=== PATIENT | female | born 1985 | race Caucasian/White ===

== ENCOUNTER 2016-09-11 21:17 | Inpatient (IN) | payer OTHER ==
[~2016-09-11] VITALS: Ht 170.2 cm; Wt 69.6 kg
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
[2016-09-11] MEDS ORDERED: fentaNYL INJECTION 100 MCG/2 ML AMP ONE (21:55)
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
[2016-09-11 21:58] LABS: BILIRUBIN,URINE NEGATIVE (NEGATIVE); KETONES,URINE NEGATIVE (NEGATIVE); LEUKOCYTE ESTERASE ,URINE NEGATIVE (NEGATIVE); NITRITE,URINE NEGATIVE (NEGATIVE); PH,URINE 6 (5-9); PROTEIN,URINE 3+ (NEGATIVE); UROBILINOGEN,URINE NORMAL (NORMAL)
[2016-09-11 22:07] LABS: RED BLOOD COUNT 3.73 10^6/uL (4.35-5.85); WHITE BLOOD COUNT 18.4 10^3/uL (4.3-11.0)
[2016-09-11 22:23] LABS: INR 1.6 (0.8-1.4); PROTHROMBIN TIME PATIENT 18.6 SEC (12.2-14.7)
[2016-09-11] MEDS ORDERED: ROCURONIUM 50 MG/5 ML (ZEMURON) VIAL IV ONE (22:26)
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
[2016-09-11 22:33] LABS: ALANINE AMINOTRANSFERASE 101 U/L (0-55); ALBUMIN 2.7 G/DL (3.2-4.5); ALCOHOL 195 MG/DL (<10); ANION GAP 11 MMOL/L (5-14); ASPARTATE AMINO TRANSFERASE 132 U/L (5-34); BILIRUBIN,DIRECT 0.1 MG/DL (0.0-0.3); BILIRUBIN,INDIRECT 0.2 MG/DL; BILIRUBIN,TOTAL 0.3 MG/DL (0.1-1.0); BLOOD UREA NITROGEN 11 MG/DL (7-18); BUN/CREATININE RATIO 15; CALCIUM 6.8 MG/DL (8.5-10.1); CARBON DIOXIDE 15 MMOL/L (21-32); CHLORIDE 119 MMOL/L (98-107); CREATININE SERUM 0.74 MG/DL (0.60-1.30); GFR ESTIMATED > 60; GLUCOSE 173 MG/DL (70-105); MAGNESIUM 2.1 MG/DL (1.8-2.4); PHOSPHORUS 3.5 MG/DL (2.3-4.7); POTASSIUM 2.9 MMOL/L (3.6-5.0); SODIUM 145 MMOL/L (135-145); TOTAL PROTEIN 4.4 G/DL (6.4-8.2)
[2016-09-11] MEDS ORDERED: LACTATED RINGERS 1,000 ML IV ONE (22:34)
[2016-09-11] MEDS ORDERED: EPINEPHrine INJECTION 1 MG/ML AMP ONE (23:13)
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
[2016-09-11] MEDS ORDERED: HEParin (CENTRAL IV FLUSH) 500 UNIT/5 ML SYR ONE ×2 (23:44→23:58)
[2016-09-12] VITALS (38 sets, daily range): BP systolic 53–141; BP diastolic 11–94
[2016-09-12] MEDS ORDERED: PHENYLEPHRINE 100 MCG/ML 10 ML (ANESTHESIA) SYR ONE (00:06)
[2016-09-12] MEDS ORDERED: EPINEPHrine INJECTION 1 MG/ML AMP ONE (00:06)
[2016-09-12] MEDS ORDERED: NS (IVPB) 200 ML ONE (00:06)
[2016-09-12] MEDS ORDERED: PHENYLEPHRINE INJ 10 MG/ML (NEO-SYNEPHRINE 1%) ONE (00:06)
[2016-09-12] MEDS ORDERED: SEVOFLURANE (ULTANE) 15 ML INHAL SOLN ONE (00:08)
[2016-09-12] MEDS ORDERED: CALCIUM CHLORIDE 1 GM/10 ML (IMS) SYR INJ ONE (00:30)
[2016-09-12] MEDS ORDERED: PROPOFOL DRIP (ICU) 100 ML IV ONE (00:54)
--- NOTE | 2016-09-12 00:54 | Progress Note-Post Operative ---
Post-Operative Progess Note Steam Pressure Chamber Operator Nakul Dempsey, IRASEMA Pre-Operative Diagnosis Right Closed Femur Fracture Post-Operative Diagnosis Same Post-Op Procedure Note Date of Procedure: Sep 11, 2016 Name of Procedure: Ex Fix Right Femur Procedure Note/Findings Fracture Anesthesia Type GETA Estimated blood loss (mL): RICHI Steve MD Sep 12, 2016 00:54
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
[2016-09-12] MEDS ORDERED: NS IV 500 ML 1,000 ML ONE (01:06)
[2016-09-12] MEDS ORDERED: SODIUM BICARB 8.4% 50 MEQ/50 ML (ABBOTT) SYR ONE (01:25)
[2016-09-12 01:26] LABS: BASOPHILS # (AUTO) 0.1 10^3/uL (0.0-0.1); BASOPHILS % (AUTO) 0 % (0-10); EOSINOPHILS % (AUTO) 0 % (0-10); LYMPHOCYTES # (AUTO) 3.9 X 10^3 (1.0-4.0); LYMPHOCYTES % (AUTO) 11 % (12-44); MEAN CORPUSCULAR HEMOGLOBIN 32 PG (25-34); MEAN CORPUSCULAR HGB CONC 35 G/DL (32-36); MEAN CORPUSCULAR VOLUME 92 FL (80-99); MONOCYTES # (AUTO) 2.5 X 10^3 (0.0-1.0); MONOCYTES % (AUTO) 7 % (0-12); NEUTROPHILS # (AUTO) 27.8 X 10^3 (1.8-7.8); NEUTROPHILS % (AUTO) 81 % (42-75); PLATELET COUNT 147 10^3/uL (130-400); RED BLOOD COUNT 4.47 10^6/uL (4.35-5.85); RED CELL DISTRIBUTION WIDTH 13.9 % (10.0-14.5)
[2016-09-12 01:27] LABS: WHITE BLOOD COUNT 34.4 10^3/uL (4.3-11.0)
[2016-09-12] MEDS ORDERED: NOREPINEPHRINE 4 MG/4 ML (LEVOPHED) AMP IV ONE ×2 (01:38→01:40)
[2016-09-12] MEDS ORDERED: D5W 250 ML (IVPB) 250 ML IV ONE (01:40)
[2016-09-12] MEDS ORDERED: NS IV 500 ML 500 ML ONE ×2 (01:43→09:46)
[2016-09-12] MEDS ORDERED: SODIUM BICARB 8.4% 50 MEQ/50 ML (ABBOTT) SYR IV ONE ×2 (01:45→03:00)
[2016-09-12] MEDS ORDERED: NS IV 1000 ML 1,000 ML ONE (01:48)
[2016-09-12] MEDS ORDERED: fentaNYL INJECTION 100 MCG/2 ML AMP ONE (01:54)
[2016-09-12] MEDS: NOREPINEPHRINE 4 MG in D5W 250 ML (IVPB) IV SCH ×2 (02:00→14:22)
[2016-09-12 02:29] LABS: ABG BASE EXCESS -13.3 MMOL/L (-2.5-2.5); ABG OXYGEN SATURATION 99 % (94-100); ABG PCO2 42 MMHG (35-45); ABG PO2 156 MMHG (79-93); ABG TCO2 15.5 MMOL/L (21.0-31.0); ALLENS TEST ART LINE
[2016-09-12 02:30] LABS: PATIENT TEMP 96.5
[2016-09-12 02:31] LABS: ABG PH 7.15 (7.37-7.43)
[2016-09-12] MEDS: fentaNYL INJECTION 100 MCG/2 ML AMP IV PRN ×4 (02:55→06:28)
[2016-09-12] MEDS: LACTATED RINGERS 1,000 ML IV SCH ×3 (03:18→15:53)
[2016-09-12] MEDS: PANTOPRAZOLE 40 MG/10 ML (PROTONIX) VIAL IV SCH ×3 (03:18→21:04)
[2016-09-12] MEDS ORDERED: NS (IVPB) 100 ML ONE (04:05)
[2016-09-12 05:00] LABS: ABG BASE EXCESS -2.8 MMOL/L (-2.5-2.5); ABG HCO3 22 MMOL/L (23-27); ABG OXYGEN SATURATION 100 % (94-100); ABG PCO2 42 MMHG (35-45); ABG PO2 148 MMHG (79-93); ABG TCO2 23.2 MMOL/L (21.0-31.0)
[2016-09-12 05:02] LABS: ALLENS TEST ALINE; PATIENT TEMP 99.7
[2016-09-12 05:04] LABS: ABG PH 7.34 (7.37-7.43)
[2016-09-12 05:40] LABS: BASOPHILS % (AUTO) 0 % (0-10); EOSINOPHILS % (AUTO) 0 % (0-10); LYMPHOCYTES % (AUTO) 15 % (12-44); MEAN CORPUSCULAR HEMOGLOBIN 31 PG (25-34); MEAN CORPUSCULAR HGB CONC 35 G/DL (32-36); MEAN CORPUSCULAR VOLUME 90 FL (80-99); MEAN PLATELET VOLUME 9.4 FL (7.4-10.4); MONOCYTES # (AUTO) 1.8 X 10^3 (0.0-1.0); MONOCYTES % (AUTO) 14 % (0-12); NEUTROPHILS # (AUTO) 9.5 X 10^3 (1.8-7.8); NEUTROPHILS % (AUTO) 71 % (42-75); PLATELET COUNT 145 10^3/uL (130-400); RED BLOOD COUNT 2.62 10^6/uL (4.35-5.85); RED CELL DISTRIBUTION WIDTH 13.7 % (10.0-14.5); WHITE BLOOD COUNT 13.2 10^3/uL (4.3-11.0)
[2016-09-12 05:53] LABS: INR 1.5 (0.8-1.4); PROTHROMBIN TIME PATIENT 17.4 SEC (12.2-14.7)
[2016-09-12] MEDS: POTASSIUM CL 10MEQ/50ML IVPB 50 ML IV SCH ×5 (06:00→10:03)
[2016-09-12] MEDS: MAGNESIUM 1 GM/100 ML IVPB 100 ML IV SCH ×3 (06:00→07:45)
[2016-09-12] MEDS: inSUlin (REGULAR) HUMAN 1 UNIT/0.01 ML (CHARGE PER UNIT) SC SCH ×4 (06:00→23:55)
[2016-09-12 06:02] LABS: ANION GAP 14 MMOL/L (5-14); BLOOD UREA NITROGEN 13 MG/DL (7-18); BUN/CREATININE RATIO 15; CALCIUM 7.6 MG/DL (8.5-10.1); CARBON DIOXIDE 21 MMOL/L (21-32); CHLORIDE 117 MMOL/L (98-107); CREATININE SERUM 0.88 MG/DL (0.60-1.30); GFR ESTIMATED > 60; GLUCOSE 99 MG/DL (70-105); MAGNESIUM 1.5 MG/DL (1.8-2.4); POTASSIUM 3.2 MMOL/L (3.6-5.0); SODIUM 152 MMOL/L (135-145)
--- NOTE | 2016-09-12 06:22 | Diagnostic Imaging Report ---
EXAMINATION: Chest radiograph, portable AP view. DATE: September 11, 2016 at 2223 hours. INDICATION: 31-year-old female, chest tube placement. COMPARISON: September 11, 2016 at 2132 hrs. FINDINGS: There is a left-sided chest tube in place which is new since the comparison exam. The left-sided pneumothorax currently measures 2.2 cm from the left lung apex which given differences in patient positioning is fairly similar to comparison exam. This was previously measured at 1.8 cm. There are left-sided rib fractures again noted. The endotracheal tube is approximately 2.7 cm above the xochilt. The nasogastric tube side-port is at the level of the stomach. The tip extends beyond the inferior margin of the [id number]. There is no identified right-sided pneumothorax. There is no large pleural effusion. There is nonspecific multifocal lung consolidation which appears increased in the left midlung and slightly increased in the right lower lobe since the recent comparison exam. IMPRESSION: 1. Redemonstrated left-sided pneumothorax with interval placement of left-sided chest tube. Given differences in positioning, the left-sided pneumothorax is likely essentially unchanged in size. 2. Additional support lines and tubes as above. 3. Multifocal lung consolidation which is increasing in the left midlung and mildly increasing in the right lower lobe. Dictated by: Dictated on workstation # [id number]
[2016-09-12 06:29] LABS: TROPONIN I 1.77 NG/ML (<0.30)
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
[2016-09-12] MEDS: fentaNYL INJECTION 1,250 MCG in NS (IVPB) 225 ML IV SCH ×2 (06:40→08:22)
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
[2016-09-12] MEDS ORDERED: NS IV 1000 ML 1,000 ML IV ONE ×4 (07:19)
[2016-09-12] MEDS ORDERED: fentaNYL INJECTION 100 MCG/2 ML AMP IVP ONE (07:30)
--- NOTE | 2016-09-12 08:31 | Physical Therapy Progress Note ---
Therapy Progress Note Chart review complete. Patient is intubated at this time. Evaluation will be attempted when patient is off the vent. MARVIN LOZANO PT Sep 12, 2016 08:31
[2016-09-12] MEDS: CHLORHEXIDINE 0.12% SOLN 15 ML (PERIDEX) UDC PO SCH ×2 (08:46→21:04)
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
[2016-09-12] MEDS ORDERED: POTASSIUM PHOSPHATE INJ 30 MM in NS (IVPB) 250 ML IV ONE (09:45)
[2016-09-12] MEDS: FLU TRIvalent (5 YOA+) 2016-17 (AFLURIA) 0.5 ML IM ONE (09:52)
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
[2016-09-12] MEDS ORDERED: SUCCINYLCHOLINE INJ 100 MG/5 ML SYR INJ ONE (10:52)
[2016-09-12] MEDS ORDERED: fentaNYL INJECTION 100 MCG/2 ML AMP INJ ONE (10:52)
[2016-09-12] MEDS ORDERED: ETOMIDATE IV SOLN 20 MG/10 ML VIAL IV ONE (10:52)
[2016-09-12] MEDS ORDERED: MIDAZOLAM 5 MG/5 ML (VERSED) VIAL INJ ONE (10:52)
[2016-09-12] MEDS: ceFAZolin INJECTION 1,000 MG in NS (IVPB) 50 ML IV SCH ×2 (11:15→17:57)
--- NOTE | 2016-09-12 11:44 | Progress Note-Standard ---
Standard Progress Note Progress Notes/Assess & Plan Progress/Assessment & Plan 09/12/16:seen around 9 o'clock this morning. Hypotension requiring vasopressor therapy. It is likely that replacement of blood has been inadequate and therefore additional transfusion would be instituted. No abdominal distention. Pneumothorax resolved. Will recheck hemoglobin and transfuse appropriately. Pneumococcal, meningococcal and Haemophilus influenza vaccines will be administered within the next 24-48 hours. Goal will be to discontinue vasopressor therapy as soon as possible Final Diagnosis ruptured spleen with acute anemia. Left pneumothorax. Fracture of the right femur. WAGNER FITZGERALD MD Sep 12, 2016 11:44 am
[2016-09-12] MEDS ORDERED: NON-FORMULARY MEDICATION 1 EA EA INJ SCH (14:15)
[2016-09-12] MEDS ORDERED: PNEUMOCOCCAL VACCINE 25 MCG/0.5 ML VIAL IM ONE (14:15)
[2016-09-12] MEDS: morphine PCA 30 MG/30 ML VIAL IV PRN ×2 (15:51→21:45)
[2016-09-12] MEDS ORDERED: HAEMOPH B POLY CONJ-TET TOX/PF 0.5 ML/10 MCG SOLN IM ONE (19:00)
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
[2016-09-12 23:04] LABS: ABG HCO3 14 MMOL/L (23-27)
[2016-09-13] VITALS (28 sets, daily range): BP systolic 86–150; BP diastolic 39–102
[2016-09-13] MEDS: LACTATED RINGERS 1,000 ML IV SCH ×2 (01:35→11:34)
[2016-09-13] MEDS: ceFAZolin INJECTION 1,000 MG in NS (IVPB) 50 ML IV SCH (01:37)
[2016-09-13] MEDS: morphine PCA 30 MG/30 ML VIAL IV PRN ×4 (02:47→20:34)
[2016-09-13 04:17] LABS: ABG BASE EXCESS -1.8 MMOL/L (-2.5-2.5); ABG HCO3 22 MMOL/L (23-27); ABG OXYGEN SATURATION 87 % (94-100); ABG PCO2 35 MMHG (35-45); ABG PH 7.42 (7.37-7.43); ABG PO2 51 MMHG (79-93); ABG TCO2 23.1 MMOL/L (21.0-31.0)
[2016-09-13 04:21] LABS: ALLENS TEST ART LINE; PATIENT TEMP 99.2
[2016-09-13 04:26] LABS: BASOPHILS # (AUTO) 0.1 10^3/uL (0.0-0.1); BASOPHILS % (AUTO) 0 % (0-10); EOSINOPHILS # (AUTO) 0.1 10^3/uL (0.0-0.3); EOSINOPHILS % (AUTO) 1 % (0-10); LYMPHOCYTES # (AUTO) 2.8 X 10^3 (1.0-4.0); LYMPHOCYTES % (AUTO) 18 % (12-44); MEAN CORPUSCULAR HEMOGLOBIN 31 PG (25-34); MEAN CORPUSCULAR HGB CONC 36 G/DL (32-36); MEAN CORPUSCULAR VOLUME 87 FL (80-99); MEAN PLATELET VOLUME 10.1 FL (7.4-10.4); MONOCYTES # (AUTO) 1.6 X 10^3 (0.0-1.0); MONOCYTES % (AUTO) 10 % (0-12); NEUTROPHILS # (AUTO) 11.2 X 10^3 (1.8-7.8); NEUTROPHILS % (AUTO) 71 % (42-75); PLATELET COUNT 142 10^3/uL (130-400); RED BLOOD COUNT 3.04 10^6/uL (4.35-5.85); RED CELL DISTRIBUTION WIDTH 14.9 % (10.0-14.5); WHITE BLOOD COUNT 15.7 10^3/uL (4.3-11.0)
[2016-09-13 04:43] LABS: ALANINE AMINOTRANSFERASE 75 U/L (0-55); ALBUMIN 2.5 G/DL (3.2-4.5); ANION GAP 8 MMOL/L (5-14); ASPARTATE AMINO TRANSFERASE 100 U/L (5-34); BILIRUBIN,TOTAL 0.8 MG/DL (0.1-1.0); BLOOD UREA NITROGEN 19 MG/DL (7-18); BUN/CREATININE RATIO 21; CALCIUM 7.2 MG/DL (8.5-10.1); CARBON DIOXIDE 20 MMOL/L (21-32); CHLORIDE 117 MMOL/L (98-107); CREATININE SERUM 0.92 MG/DL (0.60-1.30); GFR ESTIMATED > 60; GLUCOSE 103 MG/DL (70-105); MAGNESIUM 1.9 MG/DL (1.8-2.4); SODIUM 145 MMOL/L (135-145); TOTAL PROTEIN 4.3 G/DL (6.4-8.2)
[2016-09-13] MEDS: inSUlin (REGULAR) HUMAN 1 UNIT/0.01 ML (CHARGE PER UNIT) SC SCH (06:00)
[2016-09-13] MEDS: MAGNESIUM 1 GM/100 ML IVPB 100 ML IV SCH (06:00)
[2016-09-13] MEDS: POTASSIUM CL 10MEQ/50ML IVPB 50 ML IV SCH (06:00)
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
[2016-09-13] MEDS: PANTOPRAZOLE 40 MG/10 ML (PROTONIX) VIAL IV SCH ×2 (08:57→20:21)
--- NOTE | 2016-09-13 10:39 | Diagnostic Imaging Report ---
INDICATION: Shortness of breath. FINDINGS: The heart size is normal. There is bibasilar atelectasis and/or pneumonitis, left greater than right. There is no pleural effusion or pneumothorax. Mediastinum is unremarkable. ET and NG tubes are in satisfactory position. There is free air beneath both hemidiaphragms. IMPRESSION: Bibasilar infiltrates, left greater than right. Small amount of free air beneath the hemidiaphragms presumably related to recent splenectomy. Dictated by: Dictated on workstation # [id number]
[2016-09-13] MEDS ORDERED: ONDANSETRON 4 MG/2 ML (SDV) Z0FRAN ONE (11:37)
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
[2016-09-13] MEDS ORDERED: LACTATED RINGERS 1,000 ML IV SCH (12:24)
[2016-09-13] MEDS ORDERED: CALCIUM GLUC. 10% 4.65 MEQ/10 ML VIAL IV ONE (12:30)
[2016-09-13] MEDS ORDERED: CALCIUM GLUCONATE 10% INJ 4.65 MEQ in NS (IVPB) 100 ML IV NR (12:45)
--- NOTE | 2016-09-13 17:38 | Anesthesia-General Post-Op ---
General Patient Condition Mental Status/LOC: Same as Preop Cardiovascular: Satisfactory Nausea/Vomiting: Absent Respiratory: Satisfactory Pain: Controlled Complications: Absent Post Op Complications Complications None Follow Up Care/Instructions Patient Instructions None needed. Anesthesia/Patient Condition Patient Condition Patient is stable, no apparent adverse anesthesia problems. No complications reported per nursing. [place] [facility] [place] No PO ROSSI CRNA Sep 13, 2016 17:38
[2016-09-13 18:30] LABS: CALCIUM IONIZED 1.07 mmol/L (1.16-1.32); CORRECTED IONIZED CALCIUM 1.07 mmol/L (1.16-1.32)
[2016-09-13] MEDS: ONDANSETRON 4 MG/2 ML (SDV) Z0FRAN IVP PRN (20:21)
[2016-09-13] MEDS: D5 1/2 NS W/KCL 20 MEQ/L 1,000 ML IV SCH (22:25)
[2016-09-14] VITALS (22 sets, daily range): BP systolic 106–133; BP diastolic 56–87
[2016-09-14] MEDS: ONDANSETRON 4 MG/2 ML (SDV) Z0FRAN IVP PRN ×2 (03:29→09:43)
[2016-09-14 04:39] LABS: BASOPHILS # (AUTO) 0.1 10^3/uL (0.0-0.1); BASOPHILS % (AUTO) 0 % (0-10); EOSINOPHILS # (AUTO) 0.2 10^3/uL (0.0-0.3); EOSINOPHILS % (AUTO) 1 % (0-10); LYMPHOCYTES # (AUTO) 1.7 X 10^3 (1.0-4.0); LYMPHOCYTES % (AUTO) 11 % (12-44); MEAN CORPUSCULAR HEMOGLOBIN 31 PG (25-34); MEAN CORPUSCULAR HGB CONC 34 G/DL (32-36); MEAN CORPUSCULAR VOLUME 91 FL (80-99); MEAN PLATELET VOLUME 9.9 FL (7.4-10.4); MONOCYTES # (AUTO) 1.2 X 10^3 (0.0-1.0); MONOCYTES % (AUTO) 7 % (0-12); NEUTROPHILS # (AUTO) 12.9 X 10^3 (1.8-7.8); NEUTROPHILS % (AUTO) 81 % (42-75); PLATELET COUNT 141 10^3/uL (130-400); RED BLOOD COUNT 2.71 10^6/uL (4.35-5.85); RED CELL DISTRIBUTION WIDTH 13.9 % (10.0-14.5)
[2016-09-14 05:04] LABS: ANION GAP 6 MMOL/L (5-14); BLOOD UREA NITROGEN 12 MG/DL (7-18); BUN/CREATININE RATIO 19; CARBON DIOXIDE 23 MMOL/L (21-32); CHLORIDE 108 MMOL/L (98-107); CREATININE SERUM 0.64 MG/DL (0.60-1.30); GFR ESTIMATED > 60; GLUCOSE 113 MG/DL (70-105); MAGNESIUM 1.7 MG/DL (1.8-2.4); PHOSPHORUS 2.2 MG/DL (2.3-4.7); POTASSIUM 4.2 MMOL/L (3.6-5.0); SODIUM 137 MMOL/L (135-145)
[2016-09-14] MEDS: MAGNESIUM 1 GM/100 ML IVPB 100 ML IV SCH ×3 (06:00→08:10)
[2016-09-14] MEDS: POTASSIUM CL 10MEQ/50ML IVPB 50 ML IV SCH (06:00)
[2016-09-14] MEDS: morphine PCA 30 MG/30 ML VIAL IV PRN ×2 (06:19→19:11)
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
[2016-09-14] MEDS ORDERED: CATHETER FLUSH 10 ML SYR IV PRN (08:00)
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
[2016-09-14 08:02] LABS: CALCIUM PH 7.4
[2016-09-14] MEDS: PANTOPRAZOLE 40 MG/10 ML (PROTONIX) VIAL IV SCH ×2 (08:10→21:41)
[2016-09-14] MEDS: morphine INJ 4 MG/ML 1 ML (VIAL/SYRINGE) IVP PRN ×2 (09:01→10:29)
[2016-09-14] MEDS ORDERED: POTASSIUM PHOSPHATE INJ 30 MM in NS (IVPB) 250 ML IV NR (10:00)
--- NOTE | 2016-09-14 10:52 | Diagnostic Imaging Report ---
EXAMINATION: Portable erect AP chest at 0459 hours. INDICATION: Respiratory distress. FINDINGS: In the interval since the prior exam of 09/13/2016, the patient has been extubated and the NG line has been removed. The two left-sided chest tubes noted previously remain in good position. There is still no sign of a pneumothorax on the left; however, there does appear slightly greater involvement of the left lung base by pneumonia/atelectasis. The mild atelectasis/infiltrate in the right lung base seen previously is essentially no different. The right upper lung is clear. The small pneumoperitoneum beneath the right hemidiaphragm noted on the prior study is again evident and unchanged. The heart is stable in size. The mediastinum is not widened. The osseous structures are intact. The central venous catheter on the right noted previously is unchanged in position as well. IMPRESSION: 1. The appearance of the chest has worsened somewhat since the prior study as there is slightly greater involvement of the left lung base by pneumonia/atelectasis. A followup study would be recommended for continued evaluation. 2. The patient has been extubated and the NG line has been removed. Dictated by: Dictated on workstation # [id number]
[2016-09-14] MEDS: D5 1/2 NS W/KCL 20 MEQ/L 1,000 ML IV SCH (11:40)
[2016-09-14] MEDS ORDERED: MIDAZOLAM 2 MG/2 ML (VERSED) VIAL ONE (13:12)
[2016-09-14] MEDS ORDERED: ROCURONIUM 50 MG/5 ML (ZEMURON) VIAL IV ONE (13:12)
[2016-09-14] MEDS ORDERED: LIDOCAINE PF 2% 10 ML (XYLOCAINE) AMP ONE (13:12)
[2016-09-14] MEDS ORDERED: proPOfol 200 MG/20 ML (DIPRIVAN) VIAL IV ONE (13:12)
[2016-09-14] MEDS ORDERED: LACTATED RINGERS 1,000 ML IV ONE ×2 (13:12→15:29)
[2016-09-14] MEDS ORDERED: fentaNYL INJECTION 250 MCG/5 ML AMP ONE (13:12)
[2016-09-14] MEDS ORDERED: ONDANSETRON 4 MG/2 ML (SDV) Z0FRAN ONE ×2 (13:12→15:04)
[2016-09-14] MEDS ORDERED: LIDOCAINE JELLY 2% (XYLOCAINE) 5 ML TUBE ONE (13:12)
--- NOTE | 2016-09-14 13:18 | Occ Therapy Progress Note ---
Therapy Progress Note Pt going to surgery today. Has been extubated. Will evaluate tomorrow. DIANA SOTO OT Sep 14, 2016 13:18
[2016-09-14] MEDS ORDERED: ceFAZolin 2 GM/50 ML NS 50 ML IV ONE (13:36)
--- NOTE | 2016-09-14 14:53 | Physical Therapy Progress Note ---
Therapy Progress Note Patient is in surgery. PT to evaluate in LAYTON Pulido PT Sep 14, 2016 14:53
[2016-09-14] MEDS ORDERED: GLYCOPYRROLATE 0.2 MG/ML (ROBINUL) 2 ML VIAL ONE (14:58)
[2016-09-14] MEDS ORDERED: NEOSTIGMINE (BLOXIVERZ ) 1 MG/1ML 10 ML VIAL ONE (14:58)
[2016-09-14] MEDS ORDERED: DEXAMETHASONE PF 10 MG/ML (DECADRON) VIAL ONE (14:58)
[2016-09-14] MEDS ORDERED: HYDROmorphone (DILAUDID) 2 MG/ML VIAL ONE (15:03)
[2016-09-14] MEDS ORDERED: morphine INJ 10 MG/ML 1ML (SYR OR VIAL) ONE (15:04)
[2016-09-14] MEDS ORDERED: MEPERIDINE (DEMEROL) INJ 50 MG/ML ONE (15:22)
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
[2016-09-14] MEDS: MEPERIDINE (DEMEROL) INJ 50 MG/ML IVP PRN ×2 (15:25→15:50)
[2016-09-14] MEDS ORDERED: SEVOFLURANE (ULTANE) 15 ML INHAL SOLN ONE (15:29)
[2016-09-14] MEDS ORDERED: ONDANSETRON 4 MG/2 ML (SDV) Z0FRAN IVP PRN (15:30)
[2016-09-14] MEDS ORDERED: HYDROmorphone (DILAUDID) 2 MG/ML VIAL IVP PRN (15:30)
--- NOTE | 2016-09-14 15:38 | Progress Note-Post Operative ---
Post-Operative Progess Note Taxation Accountant Nakul Dempsey, IRASEMA Pre-Operative Diagnosis Right Closed Femur Fracture Post-Operative Diagnosis Same Post-Op Procedure Note Date of Procedure: Sep 14, 2016 Name of Procedure: Ex Fix Right Femur Removal IM Nailing RIght Femur Procedure Note/Findings Fracture Anesthesia Type GETA Estimated blood loss (mL): 250 RICHI ESCALANTE MD Sep 14, 2016 3:37 pm
--- NOTE | 2016-09-14 15:44 | Diagnostic Imaging Report ---
INDICATION: Followup right femoral fracture. DISCUSSION: Fluoroscopic support was provided during intraoperative open reduction and internal fixation of the right femur with an intramedullary zainab and interlocking screws. Please see the operative report for full detail. FLUOROSCOPY TIME: 94 seconds. IMPRESSION: Intraoperative ORIF of the right femur. Dictated by: Dictated on workstation # [id number]
--- NOTE | 2016-09-14 16:11 | Diagnostic Imaging Report ---
INDICATION: Followup right femoral fracture. DISCUSSION: Four views of the right femur were obtained postoperatively, comparison 09/12/2016. Interval open reduction internal fixation of the comminuted right femoral mid shaft fracture with an intramedullary zainab. No hardware complications. Overall alignment is near-anatomic. No unexpected radiopaque foreign body. No hardware complications. IMPRESSION: 1. Interval ORIF of the comminuted mid right femoral fracture. Dictated by: Dictated on workstation # [id number]
[2016-09-14] MEDS ORDERED: [UNRECOGNIZED DRUG - OTHER] IM ONE (17:00)
[2016-09-14] MEDS: FLU TRIvalent (5 YOA+) 2016-17 (AFLURIA) 0.5 ML IM ONE (19:33)
[2016-09-15] VITALS (15 sets, daily range): BP systolic 110–141; BP diastolic 64–86
[2016-09-15] MEDS: morphine PCA 30 MG/30 ML VIAL IV PRN ×2 (00:43→08:23)
[2016-09-15] MEDS: D5 1/2 NS W/KCL 20 MEQ/L 1,000 ML IV SCH ×2 (04:42→14:00)
[2016-09-15 04:59] LABS: BASOPHILS % (AUTO) 0 % (0-10); EOSINOPHILS % (AUTO) 0 % (0-10); LYMPHOCYTES # (AUTO) 0.4 X 10^3 (1.0-4.0); LYMPHOCYTES % (AUTO) 3 % (12-44); MEAN CORPUSCULAR HEMOGLOBIN 31 PG (25-34); MEAN CORPUSCULAR HGB CONC 34 G/DL (32-36); MEAN CORPUSCULAR VOLUME 91 FL (80-99); MONOCYTES # (AUTO) 0.7 X 10^3 (0.0-1.0); MONOCYTES % (AUTO) 6 % (0-12); NEUTROPHILS % (AUTO) 91 % (42-75); PLATELET COUNT 176 10^3/uL (130-400); RED BLOOD COUNT 2.51 10^6/uL (4.35-5.85); RED CELL DISTRIBUTION WIDTH 12.9 % (10.0-14.5); WHITE BLOOD COUNT 13.2 10^3/uL (4.3-11.0)
[2016-09-15 05:18] LABS: ANION GAP 9 MMOL/L (5-14); BLOOD UREA NITROGEN 8 MG/DL (7-18); BUN/CREATININE RATIO 13; CALCIUM 8.2 MG/DL (8.5-10.1); CARBON DIOXIDE 24 MMOL/L (21-32); CHLORIDE 107 MMOL/L (98-107); CREATININE SERUM 0.62 MG/DL (0.60-1.30); GFR ESTIMATED > 60; GLUCOSE 137 MG/DL (70-105); MAGNESIUM 1.7 MG/DL (1.8-2.4); POTASSIUM 4.2 MMOL/L (3.6-5.0); SODIUM 140 MMOL/L (135-145)
[2016-09-15] MEDS: MAGNESIUM 1 GM/100 ML IVPB 100 ML IV SCH (07:26)
[2016-09-15] MEDS: POTASSIUM CL 10MEQ/50ML IVPB 50 ML IV SCH (07:26)
[2016-09-15] MEDS: ONDANSETRON 4 MG/2 ML (SDV) Z0FRAN IVP PRN ×2 (07:44→21:55)
[2016-09-15] MEDS: PANTOPRAZOLE 40 MG/10 ML (PROTONIX) VIAL IV SCH (07:44)
[2016-09-15] MEDS ORDERED: morphine INJ 4 MG/ML 1 ML (VIAL/SYRINGE) IVP PRN (08:48)
[2016-09-15] MEDS ORDERED: morphine INJ 4 MG/ML 1 ML (VIAL/SYRINGE) ONE (08:48)
--- NOTE | 2016-09-15 09:01 | Diagnostic Imaging Report ---
EXAMINATION: Portable erect AP chest at 512h. INDICATION: Respiratory distress The heart size is normal limits and stable when compared to 09/14/16. The atelectasis/pneumonia and fluid involving the left lung base seen on the prior exam has diminished. There is still at least a moderate amount of residual density present however. The 2 left-sided chest tubes noted previously are again evident and unchanged in position. There may be a very small apical pneumothorax present on the left. The right lung base also seems somewhat better aerated than on the prior exam. The right lung is otherwise generally clear. The pneumoperitoneum beneath the right hemidiaphragm seen previously has diminished. The central venous catheter on the right is unchanged in position. IMPRESSION: There are mixed results. The lung bases do seem better aerated than on the prior study and the pneumoperitoneum noted previously has diminished. However there may be a very small apical pneumothorax now present on the left. A followup exam would be recommended for further study. These results were discussed with Dr. Rajiv Molina. Dictated by: Dictated on workstation # [id number]
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
[2016-09-15] MEDS ORDERED: fentaNYL INJECTION 100 MCG/2 ML AMP IVP PRN (10:30)
[2016-09-15] MEDS: oxyCODONE/APAP 5/325MG (PERCOCET 5) TABLET PO PRN ×2 (10:36→13:57)
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
--- NOTE | 2016-09-15 11:44 | Anesthesia-General Post-Op ---
General Patient Condition Mental Status/LOC: Same as Preop Cardiovascular: Satisfactory Nausea/Vomiting: Absent Respiratory: Satisfactory Pain: Controlled Complications: Absent Post Op Complications Complications None Follow Up Care/Instructions Patient Instructions None needed. Anesthesia/Patient Condition Patient Condition Patient is doing well, no complaints, stable vital signs, no apparent adverse anesthesia problems. No complications reported per nursing. D/C home per [facility] Criteria: HARMAN Figueroa CRNA Sep 15, 2016 11:44
[2016-09-15] MEDS: MAGNESIUM CITRATE 300 ML BTL PO NR ×2 (12:10→16:31)
[2016-09-15] MEDS: ENOXAPARIN 30 MG/0.3 ML (LOVENOX) SYR SC SCH ×2 (12:12→21:55)
[2016-09-15] MEDS ORDERED: PNEUMOCOCCAL VACCINE 25 MCG/0.5 ML VIAL IM ONE (13:15)
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
--- NOTE | 2016-09-15 14:22 | Physical Therapy Daily Note ---
PT Daily Note-Current Subjective Patient is in bed and agrees to therapy. Patient rates left rib pain 8/10 with UPSCALE SECURITY OFFICER. Pain Numeric Pain Scale: 8 Location: Left Location Body Site: Side Pain Description: Pressure, Acute Mental Status Patient Orientation: Normal For Age Attachments: Oxygen, Swan Catheter, IV Transfers Functional [place] Measure 0=Not Assessed/NA 4=Minimal Assistance 1=Total Assistance 5=Supervision or Setup 2=Maximal Assistance 6=Modified [place] 3=Moderate Assistance 7=Complete IndependenceIRFPAI Quality Coding Scale 6 Independent with activity with or without an assistive device 5 Patient requires set up or clean up by helper. Patient completes activity by themselves 4 Supervision or touching assist (CGA). [place] provide cues , steadying assist 3 The helper provides less than half the effort to complete the activity 2 The helper provides more than half the effort to complete the activity 1 Dependent. The helper does all the effort to complete an activity 7 Patient refused to complete or attempt activity 9 The patient did not perform the activity before the current illness or injury 88 Not attempted due to Medical conditions or safety concerns Transfers (B, C, W/C) (FIM): 4 Scootin Rollin Supine to/from Sit: 4 Sit to/from Stand: 4 Weight Bearing Weight Bearing Restriction: Weight Bearing/Tolerated Location Restriction: R LE Gait Training Gait (FIM): 2 Distance (FIM): 4=624-72 ft Distance: 75' Gait Level of Assist: 4 Gait Persons Needed: 1 Gait Assistive Device: FWW slow, steady; CGA for safety; multiple standing recovery periods due to left rib pain Assessment Patient tolerates treatment and returned to bed with right LE elevated with pillow. PT to increase activity as tolerated by patient. PT Residential Goals Gifted Teacher Goals PT Gifted Teacher Goals Time Frame: Sep 25, 2016 Transfers (B,C,W/C) (FIM): 6 Gait (FIM): 6 Gait distance (FIM): 3=150 ft Distance: 150' Gait Level of Assist: 6 Gait Assistive Device: FWW Stairs (FIM): 2 # of Steps: 4 Stairs Level Of Assist: 5 PT Plan Treatment/Plan Treatment Plan: Continue Plan of Care Treatment Plan: Bed Mobility, Education, Functional Activity Christopher, Functional Strength, Gait, Safety, Therapeutic Exercise, Transfers Treatment Duration: Sep 25, 2016 Visits Per Week: 11 Time/GCodes Time In: 1300 Time Out: 1330 Total Billed Treatment Time: 30 Total Billed Treatment 1 visit GT x 2 30 min LAYTON BAILEY PT Sep 15, 2016 14:22
[2016-09-15] MEDS ORDERED: ACETAMINOPHEN 500 MG TAB (TYLENOL) PO PRN (16:30)
[2016-09-15] MEDS: HYDROmorphone (DILAUDID) 2 MG/ML VIAL IVP PRN (21:55)
[2016-09-16] VITALS (12 sets, daily range): BP systolic 103–128; BP diastolic 44–81
[2016-09-16] MEDS: HYDROmorphone (DILAUDID) 2 MG/ML VIAL IVP PRN ×5 (04:13→20:51)
[2016-09-16 05:17] LABS: BASOPHILS % (AUTO) 0 % (0-10); EOSINOPHILS # (AUTO) 0.1 10^3/uL (0.0-0.3); EOSINOPHILS % (AUTO) 1 % (0-10); LYMPHOCYTES # (AUTO) 2.9 X 10^3 (1.0-4.0); LYMPHOCYTES % (AUTO) 20 % (12-44); MEAN CORPUSCULAR HEMOGLOBIN 31 PG (25-34); MEAN CORPUSCULAR HGB CONC 33 G/DL (32-36); MEAN CORPUSCULAR VOLUME 93 FL (80-99); MEAN PLATELET VOLUME 9.6 FL (7.4-10.4); MONOCYTES # (AUTO) 1.2 X 10^3 (0.0-1.0); MONOCYTES % (AUTO) 8 % (0-12); NEUTROPHILS # (AUTO) 10.2 X 10^3 (1.8-7.8); NEUTROPHILS % (AUTO) 71 % (42-75); PLATELET COUNT 278 10^3/uL (130-400); RED BLOOD COUNT 2.41 10^6/uL (4.35-5.85); RED CELL DISTRIBUTION WIDTH 13.2 % (10.0-14.5); WHITE BLOOD COUNT 14.4 10^3/uL (4.3-11.0)
[2016-09-16 05:34] LABS: ANION GAP 8 MMOL/L (5-14); BLOOD UREA NITROGEN 12 MG/DL (7-18); BUN/CREATININE RATIO 19; CARBON DIOXIDE 26 MMOL/L (21-32); CHLORIDE 107 MMOL/L (98-107); CREATININE SERUM 0.62 MG/DL (0.60-1.30); GFR ESTIMATED > 60; GLUCOSE 103 MG/DL (70-105); MAGNESIUM 1.6 MG/DL (1.8-2.4); POTASSIUM 3.3 MMOL/L (3.6-5.0); SODIUM 141 MMOL/L (135-145)
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
[2016-09-16] MEDS: ENOXAPARIN 30 MG/0.3 ML (LOVENOX) SYR SC SCH ×2 (08:23→20:31)
[2016-09-16] MEDS: PANTOPRAZOLE 40 MG (PROTONIX) TAB PO SCH (08:23)
[2016-09-16] MEDS: oxyCODONE/APAP 5/325MG (PERCOCET 5) TABLET PO PRN ×2 (10:24→14:21)
--- NOTE | 2016-09-16 10:40 | Physical Therapy Daily Note ---
PT Daily Note-Current Subjective Pt becomes tearful when she realizes this therapist is from PT; expresses that she knows she needs to participate but it is painful. Pain Numeric Pain Scale: 7 Location: Anterior Comment: "rib" pain "I wish I could describe it"; had taken pain meds prior to [place] Mental Status Patient Orientation: Person, Place, Time, Situation Transfers Functional [place] Measure 0=Not Assessed/NA 4=Minimal Assistance 1=Total Assistance 5=Supervision or Setup 2=Maximal Assistance 6=Modified [place] 3=Moderate Assistance 7=Complete IndependenceIRFPAI Quality Coding Scale 6 Independent with activity with or without an assistive device 5 Patient requires set up or clean up by helper. Patient completes activity by themselves 4 Supervision or touching assist (CGA). [place] provide cues , steadying assist 3 The helper provides less than half the effort to complete the activity 2 The helper provides more than half the effort to complete the activity 1 Dependent. The helper does all the effort to complete an activity 7 Patient refused to complete or attempt activity 9 The patient did not perform the activity before the current illness or injury 88 Not attempted due to Medical conditions or safety concerns Pt wishes to perform the bulk of bed mobility on her own, but requires min assist with right LE and to assist at torso; uses HOB elevated and bedrail. Pt able to transfer sit to stand with SBA and perform SPT to commode with FWW with SBA-CGA (pt declines gait belt due to rib pain). Pt able to perform rafael care but needs assist pulling undergarments up/down. Gait Training Pt ambulated around foot of bed with FWW (25-30 ft) with CGA-SBA with slow antalgic gait pattern. Pt up in chair post treatment. Educated pt on importance of being upright and to try to sit up x 1 hour. O2 insitu during and post treatment. Treatments Functional transfers, toileting and gait--very slow with all movement due to pain. Assessment Current Status: Good Progress Progressing. Slow due to pain. Cooperative and motivated. PT Track Superintendent Goals Skilled Nursing Goals PT Track Superintendent Goals Time Frame: Sep 25, 2016 Transfers (B,C,W/C) (FIM): 6 Gait (FIM): 6 Gait distance (FIM): 3=150 ft Distance: 150' Gait Level of Assist: 6 Gait Assistive Device: FWW Stairs (FIM): 2 # of Steps: 4 Stairs Level Of Assist: 5 PT Plan Problem List Problem List: Activity Tolerance, Functional Strength, Safety, Gait, Transfer, Bed Mobility Treatment/Plan Treatment Plan: Continue Plan of Care Treatment Plan: Bed Mobility, Education, Functional Activity Christopher, Functional Strength, Gait, Safety, Therapeutic Exercise, Transfers Treatment Duration: Sep 25, 2016 Visits Per Week: 11 Safety Risks/Education Patient Education: Transfer Techniques, Safety Issues Teaching Recipient: Patient Teaching Methods: Demonstration, Discussion Response to Teaching: Reinforcement Needed Time/GCodes Time In: 915 Time Out: 1000 Total Billed Treatment Time: 45 Total Billed Treatment visit FA 45 SHAI WILKINSON PT Sep 16, 2016 10:40
[2016-09-16] MEDS ORDERED: KCL 20 MEQ TAB (K-DUR) PO NR (11:30)
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
[2016-09-16] MEDS ORDERED: MAGNESIUM CITRATE 300 ML BTL PO NR (12:00)
[2016-09-16] MEDS: LIDOCAINE (LIDODERM) 5% PATCH TOP SCH (12:25)
[2016-09-16] MEDS: MAGNESIUM 1 GM/100 ML IVPB 100 ML IV SCH ×3 (12:56→16:40)
[2016-09-16] MEDS: POTASSIUM CL 10MEQ/50ML IVPB 50 ML IV SCH ×6 (12:56→17:47)
[2016-09-16 12:57] LABS: ANION GAP 8 MMOL/L (5-14); BLOOD UREA NITROGEN 11 MG/DL (7-18); BUN/CREATININE RATIO 19; CALCIUM 8.1 MG/DL (8.5-10.1); CARBON DIOXIDE 26 MMOL/L (21-32); CHLORIDE 106 MMOL/L (98-107); CREATININE SERUM 0.57 MG/DL (0.60-1.30); GFR ESTIMATED > 60; GLUCOSE 92 MG/DL (70-105); POTASSIUM 3.1 MMOL/L (3.6-5.0); SODIUM 140 MMOL/L (135-145)
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
[2016-09-16] MEDS ORDERED: NS IV 500 ML 500 ML ONE (14:12)
--- NOTE | 2016-09-16 16:22 | Physical Therapy Daily Note ---
PT Daily Note-Current Subjective Pt had just been moved from recliner to supine in bed. Pt reports extreme pain with movement but doesn't rate & nurse give pain med. Pt agrees to Supine Ex in bed. Pain Location Body Site: Abdomen Comment: Pt reports pain in abdomen with movement but doesn't rate. Mental Status Patient Orientation: Person, Place, Time, Situation Attachments: Oxygen, Drains, IV Transfers Functional [place] Measure 0=Not Assessed/NA 4=Minimal Assistance 1=Total Assistance 5=Supervision or Setup 2=Maximal Assistance 6=Modified [place] 3=Moderate Assistance 7=Complete IndependenceIRFPAI Quality Coding Scale 6 Independent with activity with or without an assistive device 5 Patient requires set up or clean up by helper. Patient completes activity by themselves 4 Supervision or touching assist (CGA). [place] provide cues , steadying assist 3 The helper provides less than half the effort to complete the activity 2 The helper provides more than half the effort to complete the activity 1 Dependent. The helper does all the effort to complete an activity 7 Patient refused to complete or attempt activity 9 The patient did not perform the activity before the current illness or injury 88 Not attempted due to Medical conditions or safety concerns Transfers (B, C, W/C) (FIM): 3 Scootin Supine to/from Sit: 2 Sit to/from Stand: 3 Bed to/from Chair: 3 Weight Bearing Weight Bearing Restriction: Weight Bearing/Tolerated Location Restriction: LE Bilateral Gait Training Distance (FIM): 1=up to 49 ft Distance: 2' Gait Level of Assist: 4 Gait Persons Needed: 1 Gait Assistive Device: None Pt transferred from bed to [facility] in dance style fashion. Exercises Supine Ex: Ankle pumps, Heel Slides, Straight leg raise, Hip abd/add Supine Reps: 15 Treatments Pt & family informed PT that pt had just gotten back to bed and didn't want to transfer. Pt completed Supine Ex in bed with slight assistance (AAROM) for EX. Pt then decided after EX with rest breaks for fatigue, start Blood Trans. and give pain med that pt needed to use BS for end of tx. Pt transferred to [facility] at Min-Mod A with sitting up as well as standing. PT transferred to [facility] on dance style fashion and urinated but reported needed to complete BM but it might take a while. Nursing is present due to blood trans. Pt is left with all needs met at [facility]. Assessment Current Status: Fair Progress Pt is in a lot of pain gauged by facial grimace and flax scale. Pt is motivated and wanting to complete as much as she can within pain toleration. PT Halfway Goals Material Control Associate Goals PT Halfway Goals Time Frame: Sep 25, 2016 Transfers (B,C,W/C) (FIM): 6 Gait (FIM): 6 Gait distance (FIM): 3=150 ft Distance: 150' Gait Level of Assist: 6 Gait Assistive Device: FWW Stairs (FIM): 2 # of Steps: 4 Stairs Level Of Assist: 5 PT Plan Problem List Problem List: Activity Tolerance, Functional Strength, Safety, Balance, Gait, Transfer, Bed Mobility, ROM Treatment/Plan Treatment Plan: Continue Plan of Care Treatment Plan: Bed Mobility, Education, Functional Activity Christopher, Functional Strength, Gait, Safety, Therapeutic Exercise, Transfers Treatment Duration: Sep 25, 2016 Visits Per Week: 11 Safety Risks/Education Patient Education: Gait Training, Transfer Techniques, Correct Positioning, Safety Issues Teaching Recipient: Patient, Family Teaching Methods: Discussion Response to Teaching: Verbalize Understanding Time/GCodes Time In: 1415 Time Out: 1445 Total Billed Treatment Time: 30 Total Billed Treatment visit, EX (15m) & FA (15m) KATEY WALKER PTA Sep 16, 2016 16:22
[2016-09-16] MEDS: LIDOCAINE PATCH REMOVAL TP SCH (20:41)
[2016-09-16] MEDS: CATHETER FLUSH 10 ML SYR IV SCH (20:51)
[2016-09-17] MEDS: HYDROmorphone (DILAUDID) 2 MG/ML VIAL IVP PRN ×2 (00:24→03:27)
[2016-09-17 01:19] VITALS: BP 121/76
[2016-09-17] MEDS: CATHETER FLUSH 10 ML SYR IV SCH ×3 (03:27→21:52)
[2016-09-17 04:57] VITALS: BP 115/73
[2016-09-17] MEDS: PANTOPRAZOLE 40 MG (PROTONIX) TAB PO SCH (05:47)
[2016-09-17 06:13] LABS: BASOPHILS # (AUTO) 0.1 10^3/uL (0.0-0.1); BASOPHILS % (AUTO) 0 % (0-10); EOSINOPHILS # (AUTO) 0.3 10^3/uL (0.0-0.3); EOSINOPHILS % (AUTO) 2 % (0-10); LYMPHOCYTES # (AUTO) 1.9 X 10^3 (1.0-4.0); LYMPHOCYTES % (AUTO) 13 % (12-44); MEAN CORPUSCULAR HEMOGLOBIN 31 PG (25-34); MEAN CORPUSCULAR HGB CONC 34 G/DL (32-36); MEAN CORPUSCULAR VOLUME 91 FL (80-99); MEAN PLATELET VOLUME 9.6 FL (7.4-10.4); MONOCYTES # (AUTO) 1.4 X 10^3 (0.0-1.0); MONOCYTES % (AUTO) 10 % (0-12); NEUTROPHILS # (AUTO) 10.4 X 10^3 (1.8-7.8); NEUTROPHILS % (AUTO) 74 % (42-75); PLATELET COUNT 326 10^3/uL (130-400); RED BLOOD COUNT 3.16 10^6/uL (4.35-5.85); RED CELL DISTRIBUTION WIDTH 14.5 % (10.0-14.5)
[2016-09-17 06:41] LABS: ANION GAP 7 MMOL/L (5-14); BLOOD UREA NITROGEN 10 MG/DL (7-18); BUN/CREATININE RATIO 19; CALCIUM 7.9 MG/DL (8.5-10.1); CARBON DIOXIDE 24 MMOL/L (21-32); CHLORIDE 106 MMOL/L (98-107); CREATININE SERUM 0.54 MG/DL (0.60-1.30); GFR ESTIMATED > 60; GLUCOSE 98 MG/DL (70-105); MAGNESIUM 1.7 MG/DL (1.8-2.4); POTASSIUM 3.7 MMOL/L (3.6-5.0); SODIUM 137 MMOL/L (135-145)
[2016-09-17] MEDS: ENOXAPARIN 30 MG/0.3 ML (LOVENOX) SYR SC SCH ×2 (07:35→18:57)
[2016-09-17] MEDS: HYDROcodone/APAP 5 MG/325 MG (LORTAB) TAB PO PRN ×4 (09:11→23:22)
[2016-09-17] MEDS: fentaNYL INJECTION 100 MCG/2 ML AMP IVP PRN ×5 (09:11→20:39)
[2016-09-17] MEDS: DOCUSATE SODIUM 100 MG (COLACE) CAP PO SCH ×3 (09:11→20:39)
[2016-09-17] MEDS: LIDOCAINE (LIDODERM) 5% PATCH TOP SCH (09:12)
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
--- NOTE | 2016-09-17 10:48 | Physical Therapy Progress Note ---
Therapy Progress Note Attempted to see patient x2 this morning; attempted at 9 am and pt declined until she received pain medications, she reports she had ambulated to/from the bathroom x 3 this morning; returned at 1047 and she was in the shower. Unable to see pt this moring, will check this afternoon. SHAI WILKINSON PT Sep 17, 2016 10:48
--- NOTE | 2016-09-17 15:02 | Occupational Ther Daily Note ---
OT Current Status-Daily Note Subjective Pt seen in room, up in bed, agreeable to OT. Pain not rated. Pt reported she just got some meds IV for pain Appearance Alert, cooperative Mental Status/Objective Functional [place] Measure 0=Not Assessed/NA 4=Minimal Assistance 1=Total Assistance 5=Supervision or Setup 2=Maximal Assistance 6=Modified [place] 3=Moderate Assistance 7=Complete [place] ADL-Treatment Pt showered this morning and said that she didn't do much of the shower herself but thought she could have. She also has been to the bathroom several times with her Dad, walking into bathroom and using tall toilet and grab bars. Pt was able to move from supine to sit EOB very slowly but without physical assistance other than removing covers and SCDs, HOB elevated and using bed rail. She put on t shirt with setup assistance only and needed min assist with lower body dressing to get pants over R foot. She could then pull pants up over her foot and get L foot into pants herself.. She stood SBA with FWW and pulled pants up from knee level. Pt needed to toilet and care was transferred to PT. Good progress. Pt reported if she went home that she would have someone there to help 24 hr/day. Upper Body (FIM): 5 Lower Body Dressing (FIM): 4 Education OT Patient Education: Modified ADL techniques, Purpose of tx/functional activities, Rehab process Teaching Recipient: Patient Teaching Methods: Discussion Response to Teaching: Return Demonstration OT Short Term Goals Short Term Goals 1=Demonstrate adherence to instructed precautions during ADL tasks. 2=Patient will verbalize/demonstrate understanding of assistive devices/ modifications for ADL. 3=Patient will improve strength/tolerance for activity to enable patient to perform ADL's. OT Guardian Family Member Goals Guardian Family Member Goals Time Frame: Sep 25, 2016 Eating (FIM): 7 Grooming(FIM): 6 Bathing(FIM): 6 Upper Body Dressing(FIM): 6 Lower Body Dressing(FIM): 6 Toileting(FIM): 6 Toilet/Commode Transfer(FIM): 6 Shower Transfer(FIM): 6 Additional Goals: 2-Verbalize Understanding, 3-ImproveStrength/Christopher 1=Demonstrate adherence to instructed precautions during ADL tasks. 2=Patient will verbalize/demonstrate understanding of assistive devices/ modifications for ADL. 3=Patient will improve strength/tolerance for activity to enable patient to perform ADL's. OT Education/Plan Problem List/Assessment Pt would benefit from skilled OT to increase her independence with basic self care to allow her to return to her home safely to live with SO and with family support. Pt indicated employer will make accommodations as well. Discharge Recommendations Plan/Recommendations: Continue POC Treatment Plan/Plan of Care Patient would benefit from OT for education, treatment and training to promote independence in ADL's, mobility, safety and/or upper extremity function for ADL' s. Plan of Care: ADL Retraining, Functional Mobility, UE Funct Exercise/Act, UE Neuromus Re-Ed/Coord Treatment Duration: Sep 25, 2016 Visits Per Week: 5 Rehab Potential: Good Time/GCodes Start Time: 14:25 Stop Time: 14:45 Total Time Billed (hr/min): 20 Billed Treatment Time visit, ADL 20 minutes DIANA SOTO OT Sep 17, 2016 15:01
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
[2016-09-17 16:50] VITALS: BP 119/73
[2016-09-17 20:00] VITALS: BP 122/61
[2016-09-17] MEDS: ONDANSETRON 4 MG/2 ML (SDV) Z0FRAN IVP PRN (20:39)
[2016-09-17] MEDS: LIDOCAINE PATCH REMOVAL TP SCH (20:46)
[2016-09-18] MEDS: fentaNYL INJECTION 100 MCG/2 ML AMP IVP PRN ×4 (02:22→11:30)
[2016-09-18] MEDS: ONDANSETRON 4 MG/2 ML (SDV) Z0FRAN IVP PRN (06:10)
[2016-09-18] MEDS: ENOXAPARIN 30 MG/0.3 ML (LOVENOX) SYR SC SCH (06:15)
[2016-09-18] MEDS: CATHETER FLUSH 10 ML SYR IV SCH ×2 (06:15→11:30)
[2016-09-18] MEDS: HYDROcodone/APAP 5 MG/325 MG (LORTAB) TAB PO PRN ×3 (06:15→17:37)
[2016-09-18] MEDS: PANTOPRAZOLE 40 MG (PROTONIX) TAB PO SCH (06:15)
[2016-09-18 07:08] LABS: BASOPHILS % (AUTO) 0 % (0-10); EOSINOPHILS # (AUTO) 0.3 10^3/uL (0.0-0.3); EOSINOPHILS % (AUTO) 2 % (0-10); LYMPHOCYTES # (AUTO) 1.5 X 10^3 (1.0-4.0); LYMPHOCYTES % (AUTO) 11 % (12-44); MEAN CORPUSCULAR HEMOGLOBIN 31 PG (25-34); MEAN CORPUSCULAR HGB CONC 34 G/DL (32-36); MEAN CORPUSCULAR VOLUME 92 FL (80-99); MEAN PLATELET VOLUME 9.6 FL (7.4-10.4); MONOCYTES # (AUTO) 1.1 X 10^3 (0.0-1.0); MONOCYTES % (AUTO) 8 % (0-12); NEUTROPHILS # (AUTO) 10.7 X 10^3 (1.8-7.8); NEUTROPHILS % (AUTO) 78 % (42-75); PLATELET COUNT 503 10^3/uL (130-400); RED BLOOD COUNT 3.21 10^6/uL (4.35-5.85); RED CELL DISTRIBUTION WIDTH 14.5 % (10.0-14.5); WHITE BLOOD COUNT 13.7 10^3/uL (4.3-11.0)
[2016-09-18 07:30] LABS: ANION GAP 8 MMOL/L (5-14); BLOOD UREA NITROGEN 10 MG/DL (7-18); BUN/CREATININE RATIO 18; CALCIUM 8.2 MG/DL (8.5-10.1); CARBON DIOXIDE 23 MMOL/L (21-32); CHLORIDE 109 MMOL/L (98-107); CREATININE SERUM 0.55 MG/DL (0.60-1.30); GFR ESTIMATED > 60; GLUCOSE 84 MG/DL (70-105); MAGNESIUM 1.6 MG/DL (1.8-2.4); POTASSIUM 3.6 MMOL/L (3.6-5.0); SODIUM 140 MMOL/L (135-145)
[2016-09-18 08:00] VITALS: BP 104/62
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
[2016-09-18] MEDS: DOCUSATE SODIUM 100 MG (COLACE) CAP PO SCH ×2 (09:23→13:00)
[2016-09-18] MEDS: LIDOCAINE (LIDODERM) 5% PATCH TOP SCH (09:23)
--- NOTE | 2016-09-18 11:57 | Occupational Ther Daily Note ---
OT Current Status-Daily Note Subjective Pt seen in paige, agreeable to OT. No pain specifically mentioned or rated. Appearance Alert, cooperative Mental Status/Objective Functional [place] Measure 0=Not Assessed/NA 4=Minimal Assistance 1=Total Assistance 5=Supervision or Setup 2=Maximal Assistance 6=Modified [place] 3=Moderate Assistance 7=Complete [place] ADL-Treatment While patient walked back to room after PT, talked about bathroom equipment that is recommended, whether she goes to [facility] or home. Also talked about equipment with her Dad. Recommend transfer tub bench so that she can get in tub or shower without having to step over tub (she would sit down on the end and then scoot over into the tub). Also talked about different ways to make toilet taller - BSC over toilet or toilet riser with handles. Discussed suction cup grab bars and ones attached to edge of tub. Pt was able to get herself into bed without assistance. Pt educ on an exercise she can do in room on her own to strengthen arms and encourage UE ROM and movement. Also talked about what she can do over weekend to increase independence in self care - do as much of her shower as she can, get up to brush her teeth, help get dressed, walk. Pt left up in bed, all needs met. Education OT Patient Education: Instructions to caregiver, Modified ADL techniques, Progress toward Goal/Update tx plan, Purpose of tx/functional activities, Safety issues, Use of adapted equipment Teaching Recipient: Patient Teaching Methods: Discussion Response to Teaching: Verbalize Understanding OT Short Term Goals Short Term Goals 1=Demonstrate adherence to instructed precautions during ADL tasks. 2=Patient will verbalize/demonstrate understanding of assistive devices/ modifications for ADL. 3=Patient will improve strength/tolerance for activity to enable patient to perform ADL's. OT Rn Clinical Goals Skilled Nursing Goals Time Frame: Sep 25, 2016 Eating (FIM): 7 Grooming(FIM): 6 Bathing(FIM): 6 Upper Body Dressing(FIM): 6 Lower Body Dressing(FIM): 6 Toileting(FIM): 6 Toilet/Commode Transfer(FIM): 6 Shower Transfer(FIM): 6 Additional Goals: 2-Verbalize Understanding, 3-ImproveStrength/Christopher 1=Demonstrate adherence to instructed precautions during ADL tasks. 2=Patient will verbalize/demonstrate understanding of assistive devices/ modifications for ADL. 3=Patient will improve strength/tolerance for activity to enable patient to perform ADL's. OT Education/Plan Problem List/Assessment Pt would benefit from skilled OT to increase her independence with basic self care to allow her to return to her home safely to live with SO and with family support. Pt indicated employer will make accommodations as well. Discharge Recommendations Plan/Recommendations: Continue POC Treatment Plan/Plan of Care Patient would benefit from OT for education, treatment and training to promote independence in ADL's, mobility, safety and/or upper extremity function for ADL' s. Plan of Care: ADL Retraining, Functional Mobility, UE Funct Exercise/Act, UE Neuromus Re-Ed/Coord Treatment Duration: Sep 25, 2016 Visits Per Week: 5 Rehab Potential: Good Time/GCodes Start Time: 10:40 Stop Time: 11:05 Total Time Billed (hr/min): 25 Billed Treatment Time visit, functional activity 25 minutes DIANA SOTO OT Sep 18, 2016 11:57
[2016-09-18 12:00] VITALS: BP 125/77
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
--- NOTE | 2016-09-18 15:20 | Physical Therapy Daily Note ---
PT Daily Note-Current Subjective Patient agrees to PT. She is up in room ad mae with family present. Pain Numeric Pain Scale: 5-Moderate Pain Location: Left Location Body Site: Side (ribs) Pain Description: Pressure, Acute Mental Status Patient Orientation: Normal For Age Transfers Functional [place] Measure 0=Not Assessed/NA 4=Minimal Assistance 1=Total Assistance 5=Supervision or Setup 2=Maximal Assistance 6=Modified [place] 3=Moderate Assistance 7=Complete IndependenceIRFPAI Quality Coding Scale 6 Independent with activity with or without an assistive device 5 Patient requires set up or clean up by helper. Patient completes activity by themselves 4 Supervision or touching assist (CGA). [place] provide cues , steadying assist 3 The helper provides less than half the effort to complete the activity 2 The helper provides more than half the effort to complete the activity 1 Dependent. The helper does all the effort to complete an activity 7 Patient refused to complete or attempt activity 9 The patient did not perform the activity before the current illness or injury 88 Not attempted due to Medical conditions or safety concerns Transfers (B, C, W/C) (FIM): 6 Scootin Sit to/from Stand: 6 Weight Bearing Weight Bearing Restriction: Weight Bearing/Tolerated Location Restriction: R LE Gait Training Gait (FIM): 6 Distance (FIM): 3=150 ft Distance: 300' Gait Level of Assist: 6 Gait Assistive Device: FWW slow, antalgic, step to gait sequence Stair Training Stair Training: Handrails/: 1 handrail, uses walker Stairs (FIM): 2 #of Steps: 4 Stairs: Pattern: Step to Level of Assist: 5 father present with education given Exercises Standing: Heel/toe raises, Marching Standing Reps: 10 Assessment Patient is improving and is highly motivated with progress. Family is encouraged with progress as well. PT to continue with POC. PT Optometry Assistant Goals Optometry Assistant Goals PT Optometry Assistant Goals Time Frame: Sep 25, 2016 Transfers (B,C,W/C) (FIM): 6 Gait (FIM): 6 Gait distance (FIM): 3=150 ft Distance: 150' Gait Level of Assist: 6 Gait Assistive Device: FWW Stairs (FIM): 2 # of Steps: 4 Stairs Level Of Assist: 5 PT Plan Treatment/Plan Treatment Plan: Continue Plan of Care Treatment Plan: Bed Mobility, Education, Functional Activity Christopher, Functional Strength, Gait, Safety, Therapeutic Exercise, Transfers Treatment Duration: Sep 25, 2016 Visits Per Week: 11 Time/GCodes Time In: 1436 Time Out: 1506 Total Billed Treatment Time: 30 Total Billed Treatment 1 visit FA 10 min GT 20 min LAYTON BAILEY PT Sep 18, 2016 15:20
[2016-09-18 15:50] VITALS: BP 123/84
[2016-09-18] MEDS ORDERED: OXYC-197 BC (16:10)
--- NOTE | 2016-09-18 16:11 | Discharge Inst-Simple/Standard ---
Discharge Inst-Standard Discharge Medications New, Converted or Re-Newed RX: RX on Chart Patient Instructions/Follow Up Plan of Care/Instructions/FU: To use incentive spirometry. F/U next , the Activity as Tolerated: Yes Discharge Diet: No Restrictions WAGNER FITZGERALD MD Sep 18, 2016 4:11 pm
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
--- NOTE | 2016-10-05 07:51 | Progress Note-Standard ---
Standard Progress Note Final Diagnosis Post dated anesthesia note: Anesthesia end time was 0010. PO ROSSI CRNA Oct 05, 2016 07:51
== END 2016-09-18 18:00 | disposition home or self-care (01) | DRG 956 ==
LOC: EDUNIT# 21:24 → ER 21:25 → SDC 23:42 → ICU 09-12 01:02 → 4TH 09-16 18:20
PROVIDERS: ADMIT Surgery; ATTEND Surgery
PROC: 0WJG0ZZ Inspection of Peritoneal Cavity, Open Approach (ICD-10-PCS; 2016-09-11)
PROC: 0QS805Z Reposition Right Femoral Shaft with External Fixation Device, Open Approach (ICD-10-PCS; 2016-09-11)
PROC: 07TP0ZZ Resection of Spleen, Open Approach (ICD-10-PCS; principal; 2016-09-11 22:35)
PROC: 0B9P00Z Drainage of Left Pleura with Drainage Device, Open Approach (ICD-10-PCS; 2016-09-11 22:35)
PROC: 5A1945Z Respiratory Ventilation, 24-96 Consecutive Hours (ICD-10-PCS; 2016-09-12)
PROC: 0QP Lower Bones, Removal (ICD-10-PCS; 2016-09-14)
PROC: 0QS806Z Reposition Right Femoral Shaft with Intramedullary Internal Fixation Device, Open Approach (ICD-10-PCS; 2016-09-14)
DX: S36.039A Unspecified laceration of spleen, initial encounter (principal); S72.351A Displaced comminuted fracture of shaft of right femur, initial encounter for closed fracture; S27.0XXA Traumatic pneumothorax, initial encounter; T79.4XXA Traumatic shock, initial encounter; D62 Acute posthemorrhagic anemia; S22.42XA Multiple fractures of ribs, left side, initial encounter for closed fracture; S32.038A Other fracture of third lumbar vertebra, initial encounter for closed fracture; S32.028A Other fracture of second lumbar vertebra, initial encounter for closed fracture; S32.048A Other fracture of fourth lumbar vertebra, initial encounter for closed fracture; S36.898A Other injury of other intra-abdominal organs, initial encounter; R04.0 Epistaxis; S20.212A Contusion of left front wall of thorax, initial encounter; S80.12XA Contusion of left lower leg, initial encounter; I95.89 Other hypotension; F17.210 Nicotine dependence, cigarettes, uncomplicated; V48.5XXA Car driver injured in noncollision transport accident in traffic accident, initial encounter; Y99.8 Other external cause status; Z23 Encounter for immunization
CPT/HCPCS: 31500; 32551; 36415; 36430; 43760; 51702; 70450; 70486; 71010; 72125; 72128; 72131; 72170; 73552; 73562; 73590; 80048; 80053; 80076; 80306; 80320; 81000; 82330; 82805; 82962; 83605; 83735; 84100; 84484; 84703; 85014; 85018; 85025; 85027; 85379; 85384; 85610; 85730; 86850; 86900; 86901; 86920; 87081; 87088; 88305; 90647; 90732; 93041; 94002; 94003; 94664; 94799; 96361; 96374; 99291

== ENCOUNTER → 2016-09-24 | Outpatient (CLI) | payer OTHER ==
[~2016-09-24] MED LIST: OXYC-197 BC
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
== END ==
LOC: RAD 16:19
PROVIDERS: ATTEND Surgery
DX: S62.602A Fracture of unspecified phalanx of right middle finger, initial encounter for closed fracture (principal); X58.XXXA Exposure to other specified factors, initial encounter; Y99.8 Other external cause status
CPT/HCPCS: 73120

== ENCOUNTER → 2017-01-26 | Outpatient (CLI) | payer OTHER ==
[~2017-01-26] MED LIST changes: +PANT40TA2 PO
--- NOTE | 2017-01-26 10:55 | Diagnostic Imaging Report ---
PROCEDURE: US Gallbladder. TECHNIQUE: Multiple real-time grayscale images were obtained over the right upper quadrant in various projections. INDICATION: Right upper quadrant pain. FINDINGS: The pancreas visualized portions appear unremarkable. The liver is fairly homogeneous with no focal lesion. Hepatopetal flow in the portal vein is demonstrated. The gallbladder demonstrates no stones or wall thickening. The CBD is obscured by bowel gas. The right kidney is 11.8 cm in length with no hydronephrosis or focal lesion. The upper right abdomen demonstrate no fluid collection. Sonographic Kan sign is reportedly negative. IMPRESSION: No gallstones or evidence of cholecystitis. Dictated by: Dictated on workstation # [id number]
== END ==
LOC: RAD 07:54
PROVIDERS: ATTEND Surgery
DX: R10.11 Right upper quadrant pain (principal)
CPT/HCPCS: 76705

== ENCOUNTER 2017-01-28 06:28 | Outpatient (CLI) | payer OTHER ==
[~2017-01-28] VITALS: Ht 170.2 cm; Wt 56.7 kg
[~2017-01-28 06:28] MED LIST changes: -PANT40TA2 PO
[2017-02-01] MEDS ORDERED: PANT40TA2 PO ×2 (09:53)
== END 2017-01-28 14:27 ==
LOC: PREOP 06:28
PROVIDERS: ATTEND Surgery
DX: Z01.818 Encounter for other preprocedural examination (principal); R10.13 Epigastric pain

== ENCOUNTER → 2017-02-01 | Day surgery (SDC) | payer OTHER ==
[~2017-02-01] VITALS: Ht 170.2 cm; Wt 56.7 kg
[~2017-02-01] MED LIST changes: +HURRICAINE EXT TUBE (BENZOCAINE) ONE; +HURRICAINE EXT TUBE (BENZOCAINE) XX ONE; +MIDAZOLAM 2 MG/2 ML (VERSED) VIAL ONE; +NS IV 500 ML 500 ML IV ONE; +NS IV 500 ML 500 ML ONE; +PANT40TA2 PO; +fentaNYL INJECTION 100 MCG/2 ML AMP ONE
[2017-02-01 09:13] VITALS: BP 108/71
--- NOTE | 2017-02-01 09:23 | Conscious Sedation/ASA ---
Conscious Sedation Pre-Proced Time Reviewed: 09:22 ASA Class: 2 Airway Mallampati Classification: (chenega appropriate class) I. II. III, IV Lungs Heart ASA score ASA 1: a normal healthy patient ASA 2: a patient with a mild systemic disease (mid diabetes, controlled hypertension, obesity ASA 3: a patient with a severe systemic disease that limits activity (angina , COPD, prior Myocardial infarction) ASA 4: a patient with an incapacitating disease that is a constant threat to life (CHF, renal failure) ASA 5: a moribund patient not expected to survive 24 hrs. (ruptured aneurysm) ASA 6: a declared brain patient whose organs are being harvested. For emergent operations, add the letter E after the classification Grade 1 Sedation Plan: Discussed options with patient/fam Note The patient is an appropriate candidate to undergo the planned procedure, sedation, and anesthesia. The patient immediately re-assessed prior to indication. WAGNER FITZGERALD MD Feb 01, 2017 9:22 am
[2017-02-01] MEDS: fentaNYL INJECTION 100 MCG/2 ML AMP IVP PRN ×2 (09:36→09:41)
[2017-02-01] MEDS: MIDAZOLAM 2 MG/2 ML (VERSED) VIAL IVP PRN ×4 (09:38→09:47)
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
--- NOTE | 2017-02-01 09:53 | Discharge Inst-Simple/Standard ---
Discharge Inst-Standard Discharge Medications New, Converted or Re-Newed RX: RX on Chart Patient Instructions/Follow Up Plan of Care/Instructions/FU: TO CALL MY OFFICE IN A MONTH REGARDING HER SYMPTOMS. tO AVOID NONSTEROIDALS AND ASPIRIN Activity as Tolerated: Yes Discharge Diet: No Restrictions WAGNER FITZGERALD MD Feb 01, 2017 9:53 am
[2017-02-01 10:25] VITALS: BP_SYST 108; BP_SYST 110; BP_DIAS 71; BP_DIAS 78
[2017-02-01 10:55] VITALS: BP 101/55
[2017-02-01 11:30] VITALS: BP 101/55
== END | disposition home or self-care (01) ==
LOC: ENDO 09:01
PROVIDERS: ATTEND Surgery
DX: K26.9 Duodenal ulcer, unspecified as acute or chronic, without hemorrhage or perforation (principal); K25.9 Gastric ulcer, unspecified as acute or chronic, without hemorrhage or perforation
CPT/HCPCS: 84703